=== PATIENT | male | born 1985 | race Two or more races ===

== ENCOUNTER → 2024-04-01 | Emergency (ER) | payer OTHER ==
[~2024-04-01] VITALS: Ht 167.6 cm; Wt 70.8 kg
[2024-04-01 09:17] LABS: HEMOGLOBIN 15.8 g/dL (13-16.00); MEAN CELL VOLUME 87.6 fL (80.0-100.00); MEAN CORPUSCULAR HEMOGLOBIN 30.7 pg (27.00-32.0); MEAN CORPUSCULAR HGB CONC 35.1 g/dl (32.0-36.0); PLATELET COUNT 294 K/uL (150-450); RED BLOOD COUNT 5.14 M/uL (4.00-6.00); RED CELL DISTRIBUTION WIDTH 13.7 % (11.5-14.5)
[2024-04-01 10:35] LABS: ABG PH 7.423 (7.35-7.45); ABG PO2 91.8 mmHg (80-100); ABG pCO2 39.1 mmHg (35-45); BASE EXCESS 0.7 mmol/l; SaO2 97.3 %; Tco2 26.2 mmol/l
[2024-04-01 10:36] LABS: allen test SATISFACTORY; o2 21 %; puncture site RADIAL RIGHT
== END | disposition left against medical advice (07) ==
LOC: ER 08:16
PROVIDERS: Emergency Medicine; General Practice
DX: R53.81 Other malaise (principal); R05.9 Cough, unspecified